=== PATIENT | female | born 1995 ===

== ENCOUNTER 2017-07-09 08:48 | Emergency (ER) | payer OTHER ==
[2017-07-09 08:59] VITALS: BP 132/67
--- NOTE | 2017-07-09 09:26 | UC ---
Throat Pain/Nasal Gunner HPI - HPI Summary HPI Summary: SORE THROAT, SWOLLEN TONSILS, FEVER SINCE YESTERDAY. NO RASHES, NO ABDOMINAL PAIN. SWOLLEN TENDER GLANDS IN NECK - History of Current Complaint Chief Complaint: UCRespiratory Stated Complaint: SORE THROAT Time Seen by Provider: 07/09/17 08:50 Hx Obtained From: Patient Hx Last Menstrual Period: 06/18/17 Onset/Duration: Gradual Onset, Lasting Hours, Still Present Severity: Moderate Cough: None Associated Signs & Symptoms: Positive: Hoarseness, Fever - Epiglottits Risk Factors Epiglottis Risk Factors: Negative - Allergies/Home Medications Allergies/Adverse Reactions: Allergies Allergy/AdvReac Type Severity Reaction Status Date / Time No Known Allergies Allergy Verified 07/09/17 08:54 Home Medications: Home Medications Bcp 1 tab PO DAILY 07/09/17 [History Confirmed 07/09/17] FLUoxetine CAP* [PROzac CAP*] 60 mg PO DAILY 07/09/17 [History Confirmed ] PMH/Surg Hx/FS Hx/Imm Hx Previously Healthy: Yes - Surgical History Surgical History: None - Family History Known Family History: Negative: Respiratory Disease - Social History Occupation: Student Lives: With Family Alcohol Use: Occasionally Substance Use Type: None Smoking Status (MU): Never Smoked Tobacco Review of Systems Constitutional: Fever, Fatigue Skin: Negative Eyes: Negative ENT: Sore Throat Respiratory: Negative Cardiovascular: Negative Gastrointestinal: Negative Genitourinary: Negative Motor: Negative Neurovascular: Negative Musculoskeletal: Negative Neurological: Negative Psychological: Negative All Other Systems Reviewed And Are Negative: Yes Physical Exam Triage Information Reviewed: Yes Appearance: Well-Appearing, No Pain Distress, Well-Nourished Vital Signs: Initial Vital Signs Temp 99.6 F 07/09/17 08:56 Pulse 91 07/09/17 08:56 Resp 14 07/09/17 08:56 BP 132/67 07/09/17 08:56 Pulse Ox 97 07/09/17 08:56 Vital Signs Reviewed: Yes Eye Exam: Normal ENT: Positive: Pharyngeal erythema, TMs normal, Tonsillar swelling Dental Exam: Normal Neck: Positive: Tenderness @ - BILATERAL ANTERIOR CERVICAL CHAIN, Enlarged Nodes @ - BILATERAL ANTERIOR CERVICAL CHAIN. Negative: Nuchal Rigidity Respiratory Exam: Normal Respiratory: Positive: Chest non-tender, Lungs clear, Normal breath sounds, No respiratory distress, No accessory muscle use Cardiovascular Exam: Normal Cardiovascular: Positive: RRR, No Murmur, Pulses Normal, Brisk Capillary Refill Abdominal Exam: Normal Abdomen Description: Positive: Nontender, No Organomegaly, Soft Musculoskeletal Exam: Normal Musculoskeletal: Positive: Strength Intact, ROM Intact Neurological Exam: Normal Psychological Exam: Normal Skin Exam: Normal Throat Pain/Nasal Course/Dx - Differential Dx/Diagnosis Differential Diagnosis/HQI/PQRI: Pharyngitis, Sinusitis, Tonsillitis, URI Provider Diagnoses: TONSILLITIS Discharge - Discharge Plan Condition: Stable Disposition: HOME Patient Education Materials: Tonsillitis (ED) Forms: *School Release Referrals: [facility] [Outside]
[2017-07-09 14:15] LABS: EBV Response YES
[2017-07-09 14:22] LABS: Hematocrit 35 % (35-47); Hemoglobin 11.8 g/dl (12.0-16.0); Mean Corpuscular HGB Conc 34 g/dl (31-36); Mean Corpuscular Hemoglobin 30 pg (27-31); Mean Corpuscular Volume 87 fL (80-97); Mean Platelet Volume 8 um3 (7.4-10.4); Red Blood Count 4.01 10^6/ul (4.0-5.4); Red Cell Distribution Width 13 % (10.5-15); White Blood Count 15.1 10^3/ul (3.5-10.8)
[2017-07-09 14:32] LABS: Manual Entry Verification HAN0055; Mono Internal Control QC Line Present
--- NOTE | 2017-07-10 07:20 | ED ---
Progress - Progress Note Progress Note: ELEVATED WBC (15.1), MONOSPOT (-). PLEASE GO TO ER IF WORSE. Course/Dx - Diagnoses Provider Diagnoses: Pharyngitis
[2017-07-11 10:56] LABS: EBV Capsid Ag IgG Ab Negative (Negative); EBV Capsid Ag IgM Ab Negative (Negative)
== END 2017-07-09 09:44 | disposition home or self-care (01) ==
LOC: UCCORT 08:48
DX: J03.90 Acute tonsillitis, unspecified (principal); D72.829 Elevated white blood cell count, unspecified
CPT/HCPCS: 36415; 85025; 86308; 86664; 86665; 87651; 99201; G0463